=== PATIENT | female | born 1965 | race Caucasian/White ===

== ENCOUNTER 2022-07-11 15:36 | Emergency (ER) | payer OTHER, SELFPAY ==
--- NOTE | 2022-07-11 15:48 | ED.FEMALEGU ---
HPI - Female Genitourinary General Chief complaint: Urogenital-Female Stated complaint: UTI Time Seen by Provider: 07/11/22 15:49 Source: patient Mode of arrival: ambulatory Limitations: no limitations History of Present Illness HPI Narrative: Cielo is a 57-year-old female patient presenting to the clinic today with complaints of a possible urinary tract infection. She reports she has had the lower bladder pressure and right-sided back pain x2 days. She reports she has been taking azo and she also has been taking some old Bactrim. She denies any fever or chills. She denies any vaginal discharge. States she been moving furniture at home Related Data Allergies Allergy/AdvReac Type Severity Reaction Status Date / Time No Known Allergies Allergy Verified 07/11/22 16:14 Review of Systems Review of Systems: Pertinent positives per HPI. Patient denies any fever, chills, rash, headache, visual changes, dizziness, cough, runny nose, sore throat, shortness of breath, chest pain, palpitations, nausea, vomiting, diarrhea, constipation, abdominal pain. PMFSH Comments At the time of my signature, I reviewed and agree with the nursing past medical, surgical, social, and family history. There is no relevant family history pertinent to the patient complaint. Exam Narrative: General: Well-developed, well nourished, in no apparent distress. Head: Normocephalic, atraumatic. Cardio: Regular rate and rhythm, s1 and s2 normal, no murmur appreciated. Resp: Clear to auscultation bilaterally, no rhonchi, rales, wheezing or rubs. Abdomen: Soft, pliable, bowel sounds present in all quadrants, mild tender to palpation over the suprapubic area, no organomegly, no CVAT tenderness. Musculoskeletal: No deformity, tender to palpation over the right lower back, pain with bending and flexing over the right lower back, grossly normal range of motion, muscle strength strong and equal, peripheral pulse strong, no edema, no cyanosis, normal gait and station Course Course Emergency Course: Portions of this record may have been created with voice recognition software. Level of Care: Express Care Visit Vital Signs Vital signs: Vital Signs Temperature 36.6 C 07/11/22 15:50 Pulse Rate 90 07/11/22 15:50 Respiratory Rate 16 07/11/22 15:50 Blood Pressure 156/77 H 07/11/22 15:50 Pulse Oximetry 98 07/11/22 15:50 Oxygen Delivery Room Air 07/11/22 15:50 Temperature 36.6 C 07/11/22 15:50 Pulse Rate 90 07/11/22 15:50 Respiratory Rate 16 07/11/22 15:50 Blood Pressure 156/77 H 07/11/22 15:50 Pulse Oximetry 98 07/11/22 15:50 Oxygen Delivery Room Air 07/11/22 15:50 Vital signs reviewed MDM - Female Genitourinary MDM Narrative Medical decision making narrative: At the time of visit patient is resting comfortably on the exam table. Urinalysis was obtained and was negative for any sign of infection. Patient reports that she has been taking Bactrim and azo for symptoms. Will send urine for culture. I suspect patient had may have right low back muscular strain. Supportive measures were discussed with the patient she voiced understanding discharge instructions agrees to treatment plan Differential Diagnosis Differential diagnosis: Likely urinary tract infection, cystitis and other (Low back pain) Lab Data Labs: Urine Glucose Negative Reference Range: Negative Urine Bilirubin Negative Reference Range: Negative Urine Ketone Negative Reference Range: Negative Urine Specific [place] 1.025 Reference Range:1.001-1.035 Urine Blood Negative Reference Range: Negative * *
[2022-07-11 15:50] VITALS: BP 156/77; PULSE 90; RESP 16; TEMP 36.6; O2SAT 98
== END 2022-07-11 16:18 | disposition home or self-care (01) ==
PROVIDERS: Emergency Provider Nurse Practitioner Family
DX: R39.89 Other symptoms and signs involving the genitourinary system (principal); S39.012A Strain of muscle, fascia and tendon of lower back, initial encounter; X58.XXXA Exposure to other specified factors, initial encounter
CPT/HCPCS: 81003; 87086; 99203; G0463

== ENCOUNTER 2023-01-21 16:06 | Emergency (ER) | payer OTHER, SELFPAY ==
[2023-01-21 16:19] VITALS: BP 144/76; PULSE 83; RESP 18; TEMP 36.3; O2SAT 100
--- NOTE | 2023-01-21 17:13 | ED.GENADULT ---
HPI - General Adult General Chief complaint: Extremity Injury, Upper Stated complaint: Rt Arm Pain Time Seen by Provider: 01/21/23 16:50 Source: patient, RN notes reviewed and old records reviewed Mode of arrival: ambulatory Limitations: no limitations History of Present Illness HPI narrative: 57 year old female presents to [facility] with complaints of right forearm pain that shoots to her thumb and also shoots up to her medial elbow for the past 4 days. Patient reports that she has no had any known injury to her right forearm or elbow or her hand. Patient has full ROM of her right arm,hand shoulder with strong pulses to her right arm.Patient reports that pain shots up her arm to the elbow when she tries to use her hand and arm.Patient has no swelling or any redness or any warmth to right arm or elbow or any discoloration. MD complaint: right arm pain Onset (ago): day(s) (4) Location: right and upper extremity Radiation: proximal and distal Severity scale (1-10): 7 Exacerbating factors: movement and other (use) Treatments prior to arrival: none Related Data Allergies Allergy/AdvReac Type Severity Reaction Status Date / Time No Known Allergies Allergy Verified 01/21/23 16:30 Review of Systems Review of Systems: CONSTITUTIONAL: Denies fever, chills, or sweats. EYES: Denies visual changes, redness, or discharge. ENT: Denies rhinorrhea, congestion, sore throat, or otalgia. CARDIOVASCULAR: Denies chest pain, palpitations, or edema. RESPIRATORY: Denies cough or dyspnea. GASTROINTESTINAL: Denies abdominal pain, nausea, vomiting, or diarrhea. GENITOURINARY: Denies dysuria or hematuria. SKIN: Denies rash or itching. MUSCULOSKELETAL: Denies back pain, Reports pain to right forearm radiating to medial elbow and to right thumb or myalgia. NEUROLOGIC: Denies headache, numbness, or weakness. PSYCHIATRIC: Denies anxiety or depression. All systems reviewed & are unremarkable except as noted in HPI and below PMFSH Social History Social History Living arrangements: with family Gender identity (if verbalized by the patient): Female Comments At time of signature, agree with nursing past medical, surgical, social and family history. There is no relevant family history pertinent to the presenting complaint Exam Narrative: GENERAL: Well-appearing, well-nourished, and in no acute distress. HEAD: Normocephalic, atraumatic. EYES: PERRLA and EOMI. ENT: Nares clear, no rhinorrhea or epistaxis. Mucous membranes moist.TM's normal throat pink with no swelling NECK: Supple. no lymphadenopathy CHEST: Clear to auscultation. No respiratory distress. SAO2 100% on room air HEART: Regular rate and rhythm. No murmur heard. Normal peripheral pulses. ABDOMEN: Soft, nontender, nondistended, normal active bowel sounds. EXTREMITIES: Normal range of motion. No edema, no discoloration or warmth of left forearm, pain radiates to right thumb and also radiates to medial elbow when attempts to use arm, no known injury, circulation sensation and mobility intact.full movement all fingers also. SKIN: Warm, dry, no rash. NEURO: No focal deficits. Alert and oriented x3. Course Course Emergency Course: Patient is aware of diagnosis, understands and agrees to treatment plan.? Anticipatory guidance given.? Patient agrees to follow-up as directed and is aware of reasons to seek care at the emergency department. Portions of this record may have been created with voice recognition software Level of Care: Express Care Visit Vital Signs Vital signs: Vital Signs Temperature 36.3 C L 01/21/23 16:19 Pulse Rate 83 01/21/23 16:19 Respiratory Rate 18 01/21/23 16:19 Blood Pressure 144/76 H 01/21/23 16:19 Pulse Oximetry 100 01/21/23 16:19 Oxygen Delivery Room Air 01/21/23 16:19 Temperature 36.3 C L 01/21/23 16:19 Pulse Rate 83 01/21/23 16:19 Respiratory Rate 18 01/21/23 16:19 Bl
== END 2023-01-21 17:20 | disposition home or self-care (01) ==
PROVIDERS: Emergency Provider Registered Nurse
DX: M77.8 Other enthesopathies, not elsewhere classified (principal)
CPT/HCPCS: 99213; G0463